=== PATIENT | female | born 1975 | race Two or more races ===

== ENCOUNTER 2016-09-21 01:13 | Emergency (ER) | payer MEDICAID ==
[~2016-09-21] VITALS: Ht 147.3 cm; Wt 59.0 kg
[~2016-09-21 01:13] MED LIST: ATIVAN1 MG ORAL; NITROFURANTOIN100 M2 ORAL; NKM; PHENAZOPYRIDIN200 MG ORAL
[2016-09-21] MEDS ORDERED: Phenazopyridine 200mg tab ORAL ONE (01:30)
[2016-09-21] MEDS ORDERED: Cephalexin 500mg cap ORAL ONE (01:30)
[2016-09-21] MEDS ORDERED: PHENAZOPYRIDIN200 MG ORAL (01:31)
[2016-09-21] MEDS ORDERED: KEFLEX500 MG ORAL (01:31)
--- NOTE | 2016-09-21 01:32 | Emergency Room Report ---
History of Present Illness General Chief Complaint: Female Urogenital Problems Source: Patient Present Illness HPI Is a 41-year-old female with a history UTI. She presents with chief complaint of frequency, urgency, dysuria. Now with hematuria. Onset for 2 days. No nausea no vomiting. Mild left upper back pain. Denies any other complaint. Similar symptom in the past. Allergies: Coded Allergies: No Known Allergies (Unverified , 09/27/12) Patient History Past Medical History: see triage record, old chart reviewed Past Surgical History: other Pertinent Family History: none Social History: Denies: smoking Last Menstrual Period: 08/30/16 Now: No Immunizations: other Reviewed Nursing Documentation: PMH: Agreed, PSxH: Agreed Nursing Documentation-PMH Past Medical History: No Stated History Hx Diabetes: No Hx Gastrointestinal Problems: No - C/S in 1994 Review of Systems Eye: Denies: blurred vision, eye pain ENT: Denies: ear pain, nose congestion, throat swelling Respiratory: Denies: cough, shortness of breath Cardiovascular: Denies: chest pain, palpitations Gastrointestinal: Denies: abdominal pain, diarrhea, nausea, vomiting Genitourinary: Reports: dysuria, frequency, hematuria Musculoskeletal: Denies: back pain, joint pain Skin: Denies: rash Neurological: Denies: headache, numbness Endocrine: Denies: increased thirst, increased urine Hematologic/Lymphatic: Denies: easy bruising All Other Systems: negative except mentioned in HPI Physical Exam Vital Signs Date Time Temp Pulse Resp B/P Pulse Ox O2 Delivery O2 Flow Rate FiO2 09/21/16 01:17 97.9 87 14 155/99 98 Room Air vitals normal Sp02 EP Interpretation: reviewed, normal General Appearance: well appearing, no apparent distress, alert Head: normocephalic, atraumatic Eyes: bilateral eye EOMI, bilateral eye PERRL ENT: hearing grossly normal, normal pharynx Neck: full range of motion, supple, no meningismus Respiratory: chest non-tender, lungs clear, normal breath sounds Cardiovascular #1: regular rate, rhythm, no murmur Gastrointestinal: normal bowel sounds, non tender, no mass, no organomegaly, no bruit, non-distended Musculoskeletal: back normal, gait/station normal, normal range of motion, other - Patient points to the left lower back area pain. No CVA tenderness. Psychiatric: mood/affect normal Skin: warm/dry Medical Decision Making Diagnostic Impression: Primary Impression: UTI (urinary tract infection) Qualified Codes: N30.00 - Acute cystitis without hematuria ER Course Patient presents with UTI. She grew out Escherichia coli in the past is sensitive to Keflex. We'll put her on that. No evidence of pyelonephritis. She may have beginning of an ascending UTI. Last Vital Signs Date Time Temp Pulse Resp B/P Pulse Ox O2 Delivery O2 Flow Rate FiO2 09/21/16 01:17 97.9 87 14 155/99 98 Room Air Status: improved Disposition: HOME, SELF-CARE Condition: Stable Scripts Phenazopyridine Hcl* (PYRIDIUM*) 200 Mg Tablet 200 MG ORAL THREE TIMES A DAY, #6 TAB 0 Refills Prov: ADELIA WHITESIDE M.D. 09/21/16 Cephalexin* (KEFLEX*) 500 Mg Capsule 500 MG ORAL TID, #21 CAP 0 Refills Prov: ADELIA WHITESIDE M.D. 09/21/16 Patient Instructions: Urinary Tract Infection Additional Instructions: Followup with your DrJordi in 2 to 3 days. Return for fever, chills, nausea vomiting or worsening symptoms. ADELIA WHITESIDE M.D. Sep 21, 2016 01:32
[2016-09-21 01:39] VITALS: BP 155/99
== END 2016-09-21 01:40 | disposition home or self-care (01) ==
LOC: EMR 01:25
DX: N30.00 Acute cystitis without hematuria (principal); M54.9 Dorsalgia, unspecified
CPT/HCPCS: 87086; 87181; 99284

== ENCOUNTER 2017-04-15 23:30 | Emergency (ER) | payer MEDICAID ==
[~2017-04-15] VITALS: Ht 147.3 cm; Wt 61.2 kg
[~2017-04-15 23:30] MED LIST changes: +KEFLEX500 MG ORAL
[2017-04-15] MEDS ORDERED: TYLENOL325 MG ORAL (23:49)
[2017-04-15] MEDS ORDERED: LEVOFLOXACIN750 MG ORAL (23:49)
[2017-04-15] MEDS ORDERED: OMEPRAZOLE40 M1 ORAL (23:49)
[2017-04-15] MEDS ORDERED: FERROUS SULFAT325 MG ORAL (23:49)
[2017-04-15] MEDS ORDERED: PENTOXIFYLLINE400 MG ORAL (23:49)
[2017-04-15] MEDS ORDERED: TORADOL60 MG/2 ML PO (23:49)
[2017-04-15 23:56] VITALS: BP 136/88
[2017-04-16] MEDS ORDERED: Morphine Sulfate 4mg/ml Inj IVP ONE (00:15)
[2017-04-16] MEDS ORDERED: Ketorolac 30mg Inj IV ONE (00:15)
[2017-04-16 00:31] LABS: BASOPHILS % (AUTO) 0.3 % (0.0-2.0); MEAN CORPUSCULAR HEMOGLOBIN 33.4 PG (27.0-31.0); MEAN CORPUSCULAR HGB CONC 34.3 G/DL (32.0-36.0); MEAN CORPUSCULAR VOLUME 97 FL (80-99); MEAN PLATELET VOLUME 6.6 FL (6.5-10.1); MONOCYTES % (AUTO) 2.4 % (1.0-10.0); NEUTROPHILS % (AUTO) 80.4 % (45.0-75.0); PLATELET COUNT 257 K/UL (150-450); RED BLOOD COUNT 3.39 M/UL (4.20-5.40); RED CELL DISTRIBUTION WIDTH 12.3 % (11.6-14.8); WHITE BLOOD COUNT 12.1 K/UL (4.8-10.8)
[2017-04-16 01:11] LABS: ANION GAP 9 mmol/L (5-15); CALCIUM 8.4 MG/DL (8.5-10.1); CARBON DIOXIDE 24 MMOL/L (21-32); CHLORIDE 106 MMOL/L (98-107); CREATININE 0.9 MG/DL (0.55-1.30); GLOMERULAR FILTRATION RATE > 60 mL/min (>60); POTASSIUM 3.3 MMOL/L (3.5-5.1); SODIUM 139 MMOL/L (136-145)
[2017-04-16 01:16] LABS: ALANINE AMINOTRANSFERASE 42 U/L (12-78); ALBUMIN/GLOBULIN RATIO 0.7 (1.0-2.7); ASPARTATE AMINO TRANSFERASE 73 U/L (15-37); LIPASE 90 U/L (73-393); TOTAL PROTEIN 6.2 G/DL (6.4-8.2)
[2017-04-16 01:22] VITALS: BP 146/83
[2017-04-16 01:27] LABS: APPEARANCE,URINE CLOUDY; KETONES,URINE 3+ (NEGATIVE); LEUKOCYTE ESTERASE ,URINE 2+ (NEGATIVE); NITRITE,URINE NEGATIVE (NEGATIVE); PH,URINE 5 (4.5-8.0); PROTEIN,URINE 1+ (NEGATIVE); UROBILINOGEN,URINE NORMAL MG/DL (0.0-1.0)
[2017-04-16 01:28] LABS: BACTERIA,URINE MANY /HPF; RBC,URINE 15-20 /HPF (0 - 2); SQUAMOUS EPITHELIAL CELL,UR MANY /LPF (NONE/OCC)
--- NOTE | 2017-04-16 01:41 | Emergency Room Report ---
History of Present Illness General Chief Complaint: Pain Source: Patient Present Illness HPI Patient presents with complaints of headache bodyache Lightheadedness general malaise Patient had significant surgery 3 days ago in [place] Including tummy tuck Breast augmentation That transplant to the buttock area Chin lift Patient denies any shortness of breath She does have increased abdominal discomfort and nausea as well Decreased oral intake Allergies: Coded Allergies: No Known Allergies (Unverified , 09/27/12) Patient History Past Medical History: see triage record Pertinent Family History: none Last Menstrual Period: 03/15/17 Now: No : 4 Para: 1 Reviewed Nursing Documentation: PMH: Agreed, PSxH: Agreed Nursing Documentation-PMH Past Medical History: No Stated History Hx Diabetes: No Hx Gastrointestinal Problems: No - C/S in 1994 Review of Systems All Other Systems: negative except mentioned in HPI Physical Exam Vital Signs Date Time Temp Pulse Resp B/P (MAP) Pulse Ox O2 Delivery O2 Flow Rate FiO2 04/15/17 23:37 97.9 110 18 157/96 96 Room Air Sp02 EP Interpretation: reviewed, normal General Appearance: mild distress - in pain Head: normocephalic, atraumatic Eyes: bilateral eye PERRL, bilateral eye EOMI ENT: hearing grossly normal, normal pharynx, TMs + canals normal, uvula midline Neck: full range of motion, supple, no meningismus, no bony tend Respiratory: lungs clear, normal breath sounds, no rhonchi, no respiratory distress, no retraction, no accessory muscle use Cardiovascular #1: normal peripheral pulses, regular rate, rhythm, no edema, no gallop, no JVD, no murmur Gastrointestinal: normal bowel sounds, no organomegaly, non-distended, no pulsatile mass, no rebound, other - Patient has stitches in the umbilical area ecchymosis over the lower abdominal region, sutures in place across the lower abdominal area, Musculoskeletal: swelling - In both lower extremity Neurologic: oriented x3, responsive, director personal III-XII nml as tested, sensory intact Psychiatric: mood/affect normal Skin: other - Ecchymosis in multiple areas including the chin, abdominal area, drainage place in the right flank Lymphatic: normal inspection, no adenopathy Medical Decision Making Diagnostic Impression: Primary Impression: Abdominal pain Additional Impressions: Post-op pain Post-op bleeding UTI (urinary tract infection) ER Course Multiple differentials considered Patient's blood work at this time is appropriate Urine sample did show UTI Patient was given antibiotics for this Patient has diffuse body pain Has had multiple surgical sites and appears uncomfortable requires pain control and antibiotics and further inpatient evaluation Secondary to insurance purposes patient was transferred Labs Test 04/16/17 00:15 04/16/17 00:55 White Blood Count 12.1 K/UL (4.8-10.8) Red Blood Count 3.39 M/UL (4.20-5.40) Hemoglobin 11.3 G/DL (12.0-16.0) Hematocrit 33.0 % (37.0-47.0) Mean Corpuscular Volume 97 FL (80-99) Mean Corpuscular Hemoglobin 33.4 PG (27.0-31.0) Mean Corpuscular Hemoglobin Concent 34.3 G/DL (32.0-36.0) Red Cell Distribution Width 12.3 % (11.6-14.8) Platelet Count 257 K/UL (150-450) Mean Platelet Volume 6.6 FL (6.5-10.1) Neutrophils (%) (Auto) 80.4 % (45.0-75.0) Lymphocytes (%) (Auto) 15.0 % (20.0-45.0) Monocytes (%) (Auto) 2.4 % (1.0-10.0) Eosinophils (%) (Auto) 2.0 % (0.0-3.0) Basophils (%) (Auto) 0.3 % (0.0-2.0) Sodium Level 139 MMOL/L (136-145) Potassium Level 3.3 MMOL/L (3.5-5.1) Chloride Level 106 MMOL/L (98-107) Carbon Dioxide Level 24 MMOL/L (21-32) Anion Gap 9 mmol/L (5-15) Blood Urea Nitrogen 13 mg/dL (7-18) Creatinine 0.9 MG/DL (0.55-1.30) Estimat Glomerular Filtration Rate > 60 mL/min (>60) Glucose Level 113 MG/DL (74-106) Calcium Level 8.4 MG/DL (8.5-10.1) Total Bilirubin 0.3 MG/DL (0.2-1.0) Aspartate Amino Transf (AST/SGOT) 73 U/L (15-37) Alanine Aminotransferase (ALT/SGPT) 42 U/L (12-78) Alkaline Phosphatase 37 U/L (46-116) Total Protein 6.2 G/DL (6.4-8.2) Albumin 2.6 G/DL (3.4-5.0) Globulin 3.6 g/dL Albumin/Globulin Ratio 0.7 (1.0-2.7) Lipase 90 U/L (73-393) Urine Color Yellow Urine Appearance Cloudy Urine pH 5 (4.5-8.0) Urine Specific [place] 1.025 (1.005-1.035) Urine Protein 1+ (NEGATIVE) Urine Glucose (UA) Negative (NEGATIVE) Urine Ketones 3+ (NEGATIVE) Urine Occult Blood 4+ (NEGATIVE) Urine Nitrite Negative (NEGATIVE) Urine Bilirubin Negative (NEGATIVE) Urine Urobilinogen Normal MG/DL (0.0-1.0) Urine Leukocyte Esterase 2+ (NEGATIVE) Urine RBC 15-20 /HPF (0 - 2) Urine WBC 10-15 /HPF (0 - 2) Urine Squamous Epithelial Cells Many /LPF (NONE/OCC) Urine Bacteria Many /HPF (NONE) Rhythm Strip Diag. Results EP Interpretation: yes Rate: 88 Rhythm: NSR, no PVC's, no ectopy Last Vital Signs Date Time Temp Pulse Resp B/P (MAP) Pulse Ox O2 Delivery O2 Flow Rate FiO2 04/16/17 01:22 97.9 85 20 146/83 97 Room Air Status: improved Disposition: XFER SHT-TRM HOSP Condition: Improved Referrals: [facility],REFERRING (PCP) NIESHA AARON D.O. Apr 16, 2017 01:41
[2017-04-16 01:42] VITALS: BP 146/83
[2017-04-16] MEDS ORDERED: Levofloxacin 500mg tab ORAL ONE (01:45)
== END 2017-04-16 01:44 | disposition short-term general hospital (02) ==
LOC: EMR 23:59
DX: R10.9 Unspecified abdominal pain (principal); G89.18 Other acute postprocedural pain; L76.22 Postprocedural hemorrhage of skin and subcutaneous tissue following other procedure; Y83.8 Other surgical procedures as the cause of abnormal reaction of the patient, or of later complication, without mention of misadventure at the time of the procedure; Y92.89 Other specified places as the place of occurrence of the external cause; N39.0 Urinary tract infection, site not specified
CPT/HCPCS: 36415; 80053; 81003; 83690; 85025; 87086; 96374; 96375; 99285; J1885; J2270; J2405

== ENCOUNTER 2019-01-24 18:15 | Emergency (ER) | payer MEDICAID ==
[~2019-01-24] VITALS: Ht 147.3 cm; Wt 59.0 kg
[~2019-01-24 18:15] MED LIST changes: +FERROUS SULFAT325 MG ORAL; +LEVOFLOXACIN750 MG ORAL; +OMEPRAZOLE40 M1 ORAL; +PENTOXIFYLLINE400 MG ORAL; +TORADOL60 MG/2 ML PO; +TYLENOL325 MG ORAL
[2019-01-24] MEDS ORDERED: NKM (18:35)
[2019-01-24 18:45] VITALS: BP 154/93
--- NOTE | 2019-01-24 18:45 | NUR ---
ED Nurse Note: Patient walked in to ER c/o burning sensation during urination. AAO x4, VSS at this time. Urine collected sent down.
[2019-01-24 19:18] LABS: APPEARANCE,URINE CLEAR; BILIRUBIN, URINE NEGATIVE (NEGATIVE); GLUCOSE, URINE (UA) NEGATIVE (NEGATIVE); KETONES,URINE 4+ (NEGATIVE); LEUKOCYTE ESTERASE ,URINE 3+ (NEGATIVE); NITRITE,URINE NEGATIVE (NEGATIVE); PH,URINE 5 (4.5-8.0); PROTEIN,URINE 2+ (NEGATIVE); UROBILINOGEN,URINE 1 MG/DL (0.0-1.0)
[2019-01-24 19:24] LABS: COLOR,URINE YELLOW
[2019-01-24] MEDS ORDERED: VIBRAMYCIN100 MG ORAL (19:35)
--- NOTE | 2019-01-24 19:35 | Emergency Room Report ---
History of Present Illness General Chief Complaint: Female Urogenital Problems Source: Patient Present Illness HPI 44-year-old female with no significant past medical history here complaining of 4 days of urinary frequency and dysuria. Patient denies fever and chills, flank pain, suprapubic pain, nausea vomiting. Has not taken medication for symptom relief. Patient reports that her last menstrual period was 1 month ago and regular. Reports that she is sexually active and does not use any protection or control methods. Reports having vaginal discharge, clear, without any pruritus. Denies chest pain, shortness of breath, palpitation, no other associated symptoms. Allergies: Coded Allergies: No Known Allergies (Unverified , 01/24/19) Patient History Past Medical History: see triage record Past Surgical History: unable to obtain Pertinent Family History: none Now: No Immunizations: UTD Reviewed Nursing Documentation: PMH: Agreed; PSxH: Agreed Nursing Documentation-PM Past Medical History: No History, Except For Hx Diabetes: No Hx Gastrointestinal Problems: No - C/S in 1994 Review of Systems All Other Systems: negative except mentioned in HPI Physical Exam Vital Signs Date Time Temp Pulse Resp B/P (MAP) Pulse Ox O2 Delivery O2 Flow Rate FiO2 01/24/19 18:33 98.6 75 16 154/93 (113) 97 Room Air Sp02 EP Interpretation: reviewed, normal General Appearance: no apparent distress, alert, GCS 15, non-toxic Head: normocephalic, atraumatic Eyes: bilateral eye normal inspection, bilateral eye PERRL ENT: hearing grossly normal, normal pharynx, no angioedema, normal voice Neck: full range of motion, supple/symm/no masses Respiratory: chest non-tender, lungs clear, normal breath sounds, speaking full sentences Cardiovascular #1: regular rate, rhythm, no edema Gastrointestinal: normal bowel sounds, non tender, soft, non-distended, no guarding, no rebound Genitourinary: normal inspection, no CVA tenderness Musculoskeletal: back normal, gait/station normal, normal range of motion, non- tender Neurologic: alert, oriented x3, responsive, motor strength/tone normal, sensory intact, speech normal Psychiatric: judgement/insight normal, memory normal, mood/affect normal, no suicidal/homicidal ideation Skin: no rash Lymphatic: normal inspection Medical Decision Making PA Attestation All diagnoses and treatment plans were reviewed and discussed with my supervising physician Dr. Mccloud Diagnostic Impression: Primary Impression: UTI (urinary tract infection) ER Course 44-year-old female with no significant past medical history here complaining of 4 days of urinary frequency and dysuria. Patient denies fever and chills, flank pain, suprapubic pain, nausea vomiting. Has not taken medication for symptom relief. Patient reports that her last menstrual period was 1 month ago and regular. Reports that she is sexually active and does not use any protection or control methods. Reports having vaginal discharge, clear, without any pruritus. Denies chest pain, shortness of breath, palpitation, no other associated symptoms. Ddx considered but are not limited to: UTI, pyelonephritis, urinary incontinence , prolapsed bladder Vital signs: are WNL, pt. is afebrile H&PE are most consistent with: UTI ORDERS: UA, urine test, Pyridium, doxycycline ED INTERVENTIONS: Rocephin DISCHARGE: At this time pt. is stable for d/c to home. Will provide printed patient care instructions, and any necessary prescriptions. Care plan and follow up instructions have been discussed with the patient prior to discharge. I treated the patient with both Rocephin and doxycycline for both chlamydia and gonorrhea and has lots of white blood cells were noted in the urine. Patient to follow-up with her primary care provider if worsening symptoms return to emergency room. Last Vital Signs Date Time Temp Pulse Resp B/P (MAP) Pulse Ox O2 Delivery O2 Flow Rate FiO2 01/24/19 18:33 98.6 75 16 154/93 (113) 97 Room Air Disposition: HOME, SELF-CARE Condition: Stable Scripts Phenazopyridine Hcl* (PYRIDIUM*) 200 Mg Tablet 200 MG ORAL THREE TIMES A DAY for 2 Days, #6 TAB 0 Refills Prov: Janneth Murray 01/24/19 Doxycycline Hyclate* (VIBRAMYCIN*) 100 Mg Capsule 100 MG ORAL EVERY 12 HOURS for 7 Days, #14 CAP 0 Refills Prov: Janneth Murray 01/24/19 Patient Instructions: Urinary Tract Infection Additional Instructions: Take medication as directed follow-up with your primary care provider if worsening symptoms return to the emergency room Janneth Murray Jan 24, 2019 19:35
[2019-01-24] MEDS ORDERED: PHENAZOPYRIDIN200 MG ORAL (19:44)
[2019-01-24] MEDS ORDERED: Lidocaine 1% MPF 10mg/ml 5ml INJ ONE (19:45)
[2019-01-24 20:00] VITALS: BP 154/93
--- NOTE | 2019-01-24 20:02 | NUR ---
ED Nurse Note: Pt cleared by health care Provider for discharge. DC instructions/prescription was given and explained to pt and verbalized understanding of teachings. All medical deviecs such as ID band removed. Pt is AAO x4, ambulatory and left with all personal belongings.
== END 2019-01-24 20:05 | disposition home or self-care (01) ==
LOC: EMR 18:28
DX: N39.0 Urinary tract infection, site not specified (principal)
CPT/HCPCS: 81001; 81025; 87086; 87181; 96372; 96374; 99284; J0696